=== PATIENT | male | born 1965 | race Caucasian/White ===

== ENCOUNTER 2021-01-03 11:06 | Outpatient (CLI) | payer MEDICARE, MEDICAID, SELFPAY ==
[2021-01-03 11:56] LABS: Basophils Percent Auto 0.4 % (0.2-1.2); Eosinophils Absolute Auto 0.2 K/mm3 (0-0.3); Eosinophils Percent Auto 2.1 % (0-4.4); Hematocrit 46.3 % (42.0-52.0); Hemoglobin 15.1 g/dL (14.0-18.0); Immature Granulocyte Absolute 0.04 K/mm3 (0.00-0.031); Immature Granulocyte Percent A 0.4 % (0-0.5); Lymphocytes Absolute Auto 2.77 K/mm3 (0.9-3.2); Lymphocytes Percent Auto 28.2 % (18.3-44.2); Mean Corpuscular HGB Conc 32.6 g/dl (32-36); Mean Corpuscular Hemoglobin 31.3 pg (26-34); Mean Corpuscular Volume 95.9 fl (80-100); Mean Platelet Volume 10.5 fl (7.4-10.4); Monocytes Absolute Auto 0.7 K/mm3 (0.1-0.6); Monocytes Percent Auto 7.5 % (2.6-8.5); Neutrophils Percent Auto 61.4 % (45.5-73.1); Platelet Count Result 242 k/mm3 (150-375); Red Blood Count 4.83 M/mm3 (4.6-6.20); Red Cell Distribution Width 13.4 % (11.5-14.5); White Blood Count 9.8 K/mm3 (4.5-10.0)
== END 2021-01-03 11:07 | disposition home or self-care (01) ==
LOC: ANHLAB 11:16
PROVIDERS: PCP Family Medicine; Visit Provider Family Medicine
DX: E10.69 Type 1 diabetes mellitus with other specified complication (principal); I10 Essential (primary) hypertension; L98.9 Disorder of the skin and subcutaneous tissue, unspecified
CPT/HCPCS: 36415; 80061; 80076; 84153; 85025

== ENCOUNTER 2021-01-04 11:09 | Outpatient (NON) | payer MEDICARE, MEDICAID, SELFPAY ==
[2021-01-04 14:01] LABS: Microalbumin Urine Random > 1140.0 mg/L (0-16.7)
== END 2021-01-04 11:10 ==
PROVIDERS: PCP Family Medicine; Visit Provider Family Medicine
DX: E10.69 Type 1 diabetes mellitus with other specified complication (principal); I10 Essential (primary) hypertension; L98.9 Disorder of the skin and subcutaneous tissue, unspecified; R29.898 Other symptoms and signs involving the musculoskeletal system
CPT/HCPCS: 82043

== ENCOUNTER 2021-07-26 19:16 | Emergency (ER) | payer MEDICARE, MEDICAID, SELFPAY ==
[2021-07-26] VITALS (7 sets, daily range): BP systolic 92–150; BP diastolic 46–119; PULSE 95–105; RESP 14–22; TEMP 36.6; O2SAT 95–98
--- NOTE | ~2021-07-26 | CT_ITS ---
EXAMINATION: CT abdomen pelvis wo con DATE: 07/26/2021 22:24 INDICATION: Epigastric pain TECHNIQUE: Computed tomography (CT) of the abdomen and pelvis was performed without intravenous contr ast. The dose-length product (DLP) was 1637.82 mGy-cm. Automated exposure control and iterative recon struction technique were employed. COMPARISON: None FINDINGS: Motion artifact and body habitus limits the examination. There is atelectasis of the visual ized lower lobes. The heart size is normal. Within the limitations of noncontrast examination, the li felix, spleen, pancreas, gallbladder, and adrenal glands are normal. The kidneys are unremarkable. No p athologically enlarged abdominal or pelvic lymph nodes are identified. There is calcified atheroscler osis of the aorta and many of the other arteries. There is no free intraperitoneal gas or evidence of bowel obstruction. There is moderate lumbar spondylosis. IMPRESSION: 1. No CT correlate for the patient's symptoms. Reviewed, dictated and finalized at location A.
--- NOTE | ~2021-07-26 | XR_ITS ---
EXAMINATION: XR chest 1V portable INDICATION: Altered mental status TECHNIQUE: Portable AP chest at 2039 hours COMPARISON: 09/10/2015 FINDINGS: Cardiomegaly is noted. There are diffuse interstitial and airspace opacities. No pleural ef fusion or pneumothorax is identified. There is osteoarthritis of the shoulders. IMPRESSION: 1. Cardiomegaly. 2. Diffuse lung disease, consistent with pneumonia and/or pulmonary edema. Reviewed, dictated and finalized at location A.
--- NOTE | ~2021-07-26 | CT_ITS ---
EXAMINATION: CT BRAIN W/O DATE: 07/27/2021 13:25 INDICATION: Altered mental status TECHNIQUE: Computed tomography (CT) of the head was performed without intravenous contrast. The dose- length product was 681.00 mGy-cm. COMPARISON: No prior studies for comparison. FINDINGS: Normal brain parenchymal volume for age. Normal becerra-white differentiation. No acute intrac ranial hemorrhage, infarction, mass or mass effect. There are scattered mild periventricular and subc ortical white matter changes, most likely related to small vessel ischemic disease (microangiopathy). No ventriculomegaly or midline shift. Midline sagittal images demonstrate a normal corpus callosum, c raniovertebral junction and sella turcica. Basilar cisterns are patent. There are small bilateral mastoid effusions. Paranasal sinuses are pneumatized. No depressed skull fr actures. IMPRESSION: 1. No acute intracranial abnormality. Reviewed, dictated and finalized at location A.
--- NOTE | 2021-07-26 19:39 | ECG_ITS ---
Measurements Intervals [place] Rate: 98 P: 42 IA: 131 QRS: 63 QRSD: 94 T: 67 QT: 347 QTc: 444 Interpretive Statements SINUS RHYTHM EARLY PRECORDIAL R/S TRANSITION BASELINE WANDER- V1-V2, V6 BORDERLINE ECG Electronically Signed On 07-27-2021 8:29:37 CDT by Eros Mitchell D.O.
--- NOTE | 2021-07-26 19:41 | PC.NURSE ---
BS on arrival to ED 77, pt alert to person and place - disorient. Resting. D10 infusing at this time.
[2021-07-26 19:45] LABS: Glucose Point of Care 77 mg/dl (65-105)
--- NOTE | 2021-07-26 20:05 | PC.NURSE ---
BS 108, EDP Dr Helm made aware, gave orders to give pt PO juice.
[2021-07-26 20:08] LABS: Glucose Point of Care 108 mg/dl (65-105)
--- NOTE | 2021-07-26 20:08 | ED.AMS ---
HPI - Altered Mental Status General Chief Complaint: Altered Mental Status <Zachary Helm MD - Last Filed: 07/27/21 04:11> Stated Complaint: low bg <Zachary Helm MD - Last Filed: 07/27/21 04:11> Time Seen by Provider: 07/26/21 19:39 <Zachary Helm MD - Last Filed: 07/27/21 04:11> History of Present Illness HPI narrative: Patient is a 56-year-old male who presents ER with altered mental status and low blood sugar. Patients reports that he went down for a nap and then woke up around 6:30 PM. He is unable to stand up from bed and was acting confused. His Accu-Chek was found to be in the 40s. She has received IV D10 with subsequent improvement in mental status and blood sugar. Apparently patient is eating little less since being late to his chronic pain appointment 3 days ago and not being able to refill his morphine. He has had some mild nausea as well as some diarrhea over the last couple days. No fevers or chills or sweats. No chest pain or chest pressure. Does not typically have issues with low blood sugars. Patient did take his insulin after eating just prior to going down for his nap. This is typical for him. Patient's reports he has been sleeping more than typical over the last couple days. <Zachary Helm MD - Last Filed: 07/27/21 04:11> Related Data Home Medications: Home Medications Medication Instructions Recorded Confirmed amitriptyline 10 mg tablet 10 mg PO ONCE 08/29/19 03/05/20 flash glucose scanning reader #1 each 08/29/19 03/05/20 icosapent ethyl 1 gram capsule 2 gm PO BID 08/29/19 03/05/20 pen needle, diabetic 31 gauge x #30 each 08/29/19 03/05/20 316 <Zachary Helm MD - Last Filed: 07/27/21 04:11> Allergies/Adverse Reactions: Allergies Allergy/AdvReac Type Severity Reaction Status Date / Time amoxicillin Allergy Mild vomitting Verified 04/10/20 10:56 Penicillins Allergy Mild vomitting Verified 04/10/20 10:56 <Zachary Helm MD - Last Filed: 07/27/21 04:11> Review of Systems Review of Systems: All systems reviewed & are unremarkable except as noted in HPI and below <Zachary Helm MD - Last Filed: 07/27/21 04:11> Constitutional: Constitutional: Denies chills, Denies fever(s) and Denies weakness <Zachary Helm MD - Last Filed: 07/27/21 04:11> ENT: Denies nasal congestion and Denies sore throat <Zachary Helm MD - Last Filed: 07/27/21 04:11> Cardiovascular: Cardiovascular: Denies chest pain, Denies rapid heart rate and Denies radiating jaw, neck or arm pain <Zachary Helm MD - Last Filed: 07/27/21 04:11> Respiratory: Respiratory: Denies chest congestion, Reports cough (Chronic from smoking) and Denies dyspnea <Zachary Helm MD - Last Filed: 07/27/21 04:11> Gastrointestinal: Gastrointestinal: Denies abdominal pain, Reports diarrhea, Reports nausea and Denies vomiting <Zachary Helm MD - Last Filed: 07/27/21 04:11> Genitourinary: Genitourinary: Denies dysuria and Denies urinary frequency <Zachary Helm MD - Last Filed: 07/27/21 04:11> Integumentary/Breasts: Skin/Breast: Denies erythema, Denies rash and Reports skin ulcer (Chronic left foot) <Zachary Helm MD - Last Filed: 07/27/21 04:11> [facility] Past Medical History Medical History: Medical History (Updated 07/27/21 @ 13:50 by Ravinder Whiteside DO) Essential (primary) hypertension Gastro-esophageal reflux disease without esophagitis Gout, unspecified Hyperlipidemia Obstructive sleep apnea (adult) (pediatric) Presence of artificial left eye Tobacco use Type 2 diabetes mellitus with diabetic polyneuropathy Type 2 diabetes mellitus with foot ulcer <Zachary Helm MD - Last Filed: 07/27/21 04:11> Surgical History Surgical History: Surgical History (Updated 12/05/19 @ 09:08 by Berta Johnston NP) History of right below knee amputation <Zachary Helm MD - Last Filed: 07/27/21 04:11> Family Histo
[2021-07-26 20:24] LABS: Alveolar/Arterial O2 Gradient 26.8 mmHg; Base Excess ABG -16.8 mEq/l (+/-2.0); Carboxyhemoglobin 2.5 % THb (0-2.0); Fractional Inspired Oxygen 21 %; HCO3 ABG 10.6 mEq/l (22.0-26.0); Oxygen Content ABG 16.7 %vol (16.0-22.0); Oxygen Saturation ABG 93.9 % (95.0-100.0); Oxyhemoglobin 91.7 % THb (90.0-100.0); PCO2 ABG 30.7 mmHg (35.0-45.0); PO2 ABG 86.2 mmHg (80.0-100.0); Reduced Hemoglobin 5.8 %THb (0-5.0); Total Hemoglobin 12.9 g/dL (12.0-18.0)
[2021-07-26 20:25] LABS: Basophils Absolute Auto 0.1 K/mm3 (0.0-0.1); Basophils Percent Auto 0.3 % (0.2-1.2); Eosinophils Absolute Auto 0.1 K/mm3 (0-0.3); Eosinophils Percent Auto 0.3 % (0-4.4); Hematocrit 40.1 % (42.0-52.0); Hemoglobin 12.7 g/dL (14.0-18.0); Immature Granulocyte Percent A 4.8 % (0-0.5); Immature Platelet Fraction Pct 6.8 % (0.9-11.2); Lymphocytes Absolute Auto 2.19 K/mm3 (0.9-3.2); Lymphocytes Percent Auto 14.9 % (18.3-44.2); Mean Corpuscular HGB Conc 31.7 g/dl (32-36); Mean Corpuscular Hemoglobin 32.9 pg (26-34); Mean Corpuscular Volume 103.9 fl (80-100); Monocytes Absolute Auto 0.8 K/mm3 (0.1-0.6); Monocytes Percent Auto 5.4 % (2.6-8.5); Neutrophils Absolute Auto 10.9 K/mm3 (1.3-6.7); Neutrophils Percent Auto 74.3 % (45.5-73.1); Nucleated Red Blood Cells Absolute Auto 0.3 K/mm3 (0.0-0.012); Nucleated Red Blood Cells Perc 2.2 % (0.0-0.2); Platelet Count Result 53 k/mm3 (150-375); Red Blood Count 3.86 M/mm3 (4.6-6.20); White Blood Count 14.7 K/mm3 (4.5-10.0)
[2021-07-26 20:27] LABS: Device ROOM AIR; Modified Allen's Test Pass; Site Drawn LEFT RADIAL; pH ABG 7.157 (7.350-7.450)
[2021-07-26 20:38] LABS: Alanine Aminotransferase 92 U/L (4-50); Albumin Level 3.5 g/dL (3.5-5.1); Alkaline Phosphatase 443 U/L (38-126); Anion Gap 19 mmol/L (8-16); Aspartate Amino Transferase 364 U/L (17-59); Bilirubin,Total 0.9 mg/dL (0.2-1.3); Blood Urea Nitrogen 74 mg/dL (9-20); Calcium 8.5 mg/dL (8.4-10.2); Carbon Dioxide 9 mmol/L (22-30); Chloride 114 mmol/L (98-107); Estimated CRCL calculation 24 ml/min; Estimated Glomerular Filt Rate 10; Glucose 102 mg/dL (65-110); Potassium 4.9 mmol/L (3.4-5.0); Sodium 142 mmol/L (137-145)
[2021-07-26 20:43] LABS: Lactic Acid Reflex 4.1 mmol/L (0.7-2.1)
[2021-07-26 21:15] LABS: Add Urine Microscopic? YES; Appearance Urine Cloudy (Clear); Bacteria Urine Trace /hpf; Bilirubin Urine Negative (Negative); Blood Urine 1+ (Negative); Color Urine Yellow (Yellow); Glucose Urine UA Negative (Negative); Ketones Urine Negative (Negative); Leukocyte Esterase Ur Negative LEU/UL (Negative); Nitrate Urine Negative (Negative); Protein Urine 3+ mg/dL (Negative); RBC Urine 0-2 /hpf (0-2); Specific Grav Ur 1.013 (1.001-1.035); Squamous Epithelial Cell Urine Rare /hpf (Few); Urobilinogen Urine Negative mg/dL (<2.0); WBC Urine 0-3 /hpf
--- NOTE | 2021-07-26 21:56 | PC.NURSE ---
2 L NS infused, 0 Volume left in container. 2 L NS initiated at this time.
--- NOTE | 2021-07-26 22:10 | PC.NURSE ---
Pt to CT scan at this time. 2 L NS infusing.
--- NOTE | 2021-07-26 22:54 | PC.NURSE ---
2 L NS infused, 0 Volume left in container. (4 L NS infused total), 2 L NS initiated at this time.
[2021-07-26 23:21] LABS: Reflex Lactic Acid Yes or No Add Lactic
--- NOTE | 2021-07-26 23:49 | PC.NURSE ---
6 L NS infused in total volume. 100MLS NS infused. 0 volume left in container.
[2021-07-27] VITALS (9 sets, daily range): BP systolic 101–130; BP diastolic 57–110; PULSE 100–110; RESP 12–22; O2SAT 93–99
[2021-07-27 00:09] LABS: Lactic Acid Reflex 2.9 mmol/L (0.7-2.1)
[2021-07-27 00:39] LABS: EDCOVIDSCREEN Negative (Negative)
[2021-07-27] MEDS: DEXTROSE 50% 25 GM/50 ML SYRINGE IV PUSH (08:10)
[2021-07-27 08:31] LABS: Glucose Point of Care 40 mg/dl (65-105)
[2021-07-27 08:35] LABS: Glucose Point of Care 91 mg/dl (65-105)
[2021-07-27 09:37] LABS: Glucose Point of Care 66 mg/dl (65-105)
[2021-07-27] MEDS: DEXTROSE 5%/0.45% SOD CHL 1,000 ML 100 ML (09:52)
--- NOTE | 2021-07-27 10:10 | PC.NURSE ---
Pt. BG dropped to 61 after D50 administration. Pt. unable to tolerate food PO. ERP ordered D5% 0.45% NS to keep BG up. See MAR orders.
[2021-07-27 10:51] LABS: Glucose Point of Care 62 mg/dl (65-105)
--- NOTE | 2021-07-27 10:56 | PC.NURSE ---
and mother of patient both given updates regarding patient status and awaiting transport. Pt resting at this time.
[2021-07-27 12:18] LABS: Glucose Point of Care 61 mg/dl (65-105)
[2021-07-27 12:38] LABS: Glucose Point of Care 71 mg/dl (65-105)
[2021-07-27 13:01] LABS: Alveolar/Arterial O2 Gradient 48.2 mmHg; Base Excess ABG -18.2 mEq/l (+/-2.0); Fractional Inspired Oxygen 21 %; HCO3 ABG 8.8 mEq/l (22.0-26.0); Oxygen Content ABG 15.7 %vol (16.0-22.0); Oxygen Saturation ABG 90.2 % (95.0-100.0); Oxyhemoglobin 89.7 % THb (90.0-100.0); PCO2 ABG 25.2 mmHg (35.0-45.0); PO2 ABG 71.4 mmHg (80.0-100.0); Total Hemoglobin 12.4 g/dL (12.0-18.0)
[2021-07-27 13:04] LABS: Device ROOM AIR; Modified Allen's Test Pass; Site Drawn RIGHT RADIAL; pH ABG 7.163 (7.350-7.450)
[2021-07-27 13:39] LABS: Glucose Point of Care 80 mg/dl (65-105)
== END 2021-07-27 14:00 | disposition short-term general hospital (02) ==
PROVIDERS: Emergency Medicine; Emergency Provider Emergency Medicine; PCP Family Medicine
DX: J18.9 Pneumonia, unspecified organism (principal); N17.9 Acute kidney failure, unspecified; E11.649 Type 2 diabetes mellitus with hypoglycemia without coma; G93.41 Metabolic encephalopathy; Z20.822 Contact with and (suspected) exposure to COVID-19; I10 Essential (primary) hypertension; E11.621 Type 2 diabetes mellitus with foot ulcer; L97.429 Non-pressure chronic ulcer of left heel and midfoot with unspecified severity; E11.42 Type 2 diabetes mellitus with diabetic polyneuropathy; E78.5 Hyperlipidemia, unspecified; G47.33 Obstructive sleep apnea (adult) (pediatric); M10.9 Gout, unspecified; K21.9 Gastro-esophageal reflux disease without esophagitis; Z89.511 Acquired absence of right leg below knee; Z79.4 Long term (current) use of insulin; I51.7 Cardiomegaly; R94.31 Abnormal electrocardiogram [ECG] [EKG]
CPT/HCPCS: 36415; 36600; 51701; 70450; 71045; 74176; 80053; 81001; 82375; 82805; 82948; 83050; 83605; 85025; 85055; 87040; 87426; 93005; 96361; 96365; 96366; 96367; 96376; 99291; C9803; J0456; J0696; J7030